=== PATIENT | male | born 1995 | race Hispanic/Latino ===

== ENCOUNTER 2021-10-13 01:02 | Observation (INO) | payer BC ==
[2021-10-13 03:33] LABS: Bilirubin Neg (Negative); Blood, Urine Negative (Negative); Clarity Clear (Clear); Glucose, Urine (Dipstick) Normal (Negative); Ketone, Urine Negative (Negative); Leukocyte Negative (Negative); Nitrite Negative (Negative); Protein, Urine (Dipstick) Negative (Neg-Trace); Specific Gravity, Urine 1.025 (1.002-1.036); Urobilinogen Normal mg/dL (Less than 2)
[2021-10-13 04:12] LABS: #Eosinphils 0.3 10x3/uL (0.0-0.5); #Monocytes 0.4 10x3/uL (0.0-1.1); #Neutrophils 3.1 10x3/uL (1.5-8.4); %Basophils 0.7 % (0.0-2.0); %Eosinophils 4.9 % (0.0-6.0); %Lymphocytes 34.3 % (18.0-47.0); %Monocytes 6.3 % (0.0-10.0); %Neutrophils 53.6 % (40.0-75.0); Hemoglobin 14.1 g/dL (13.5-17.5); Mean Corpuscular HGB CONC 33.7 g/dL (32.0-36.0); Mean Corpuscular Hemoglobin 27.6 pg (27.0-33.0); Mean Corpuscular Volume 82.2 fl (81.2-95.1); Platelet Count 183 10x3/uL (150-450); RBC Distribution Width 12.9 % (11.5-14.5); White Blood Cell (WBC) Count 5.8 10x3/uL (3.5-10.5)
[2021-10-13 04:32] LABS: ALT (SGPT) 11 U/L (8-55); AST (SGOT) 12 U/L (5-34); Alkaline Phosphatase 65 U/L (40-110); Anion Gap 13 mmol/L (10-20); BUN (Urea Nitrogen) 13 mg/dL (8.9-20.6); Bilirubin, Total 0.6 mg/dL (0.2-1.2); Calc. Creatinine Clearance 0 mL/min (70-130); Calcium 8.6 mg/dL (7.8-10.44); Carbon Dioxide 24 mmol/L (22-29); Chloride 105 mmol/L (98-107); Globulin 2.5 g/dL (2.4-3.5); Glucose 88 mg/dL (70-105); Lipase 22 U/L (8-78); Potassium 3.8 mmol/L (3.5-5.1); Protein, Total 6.5 g/dL (6.0-8.3); Sodium 138 mmol/L (136-145)
[2021-10-13] MEDS ORDERED: Aspirin Chewable 81 MG TAB ONE (06:01)
[2021-10-13 06:37] VITALS: BMI 25.8
[2021-10-13] MEDS ORDERED: Sodium Chloride 0.9% 1,000 ML IV SCH ×2 (06:45→08:00)
[2021-10-13] MEDS ORDERED: Aspirin 81 mg Enteric Coated Tablet PO SCH (09:00)
[2021-10-13] MEDS ORDERED: Enoxaparin Sodium 40 MG/0.4 ML SYRINGE SC SCH (09:00)
[2021-10-13] MEDS ORDERED: Iopamidol 370 76% 100 ML VIAL ONE (09:51)
[2021-10-13] MEDS ORDERED: Magnevist 469MG/ML 20 ML VIAL ONE ×3 (09:56)
[2021-10-13 14:00] VITALS: BP 117/60; TEMP 98.1
== END 2021-10-13 16:46 | disposition home or self-care (01) ==
LOC: CSHERS 01:02 → CSHTELE 06:35
PROVIDERS: ADMIT Family Medicine; ATTEND Physician Assistant Medical
DX: R53.1 Weakness (principal); R20.0 Anesthesia of skin; Z86.19 Personal history of other infectious and parasitic diseases; N28.1 Cyst of kidney, acquired
CPT/HCPCS: 70450; 70496; 70498; 70553; 72156; 72157; 80053; 81003; 83690; 84484; 85025; 93005; 93306; 96372; A9579; G0378; J1650; J7050; Q9967

== ENCOUNTER 2021-11-14 14:48 | Emergency (ER) | payer BC | END 2021-11-14 18:17 | disposition home or self-care (01) | LOC: CSHERS 14:48 | DX: R20.2 Paresthesia of skin (principal); R29.701 NIHSS score 1 | CPT/HCPCS: 99283 ==